=== PATIENT | male | born 1940 | race Caucasian/White ===

== ENCOUNTER 2020-10-21 16:43 | Emergency (ER) | payer MEDICARE ==
[~2020-10-21 16:43] MED LIST: AMLODIPINE BESY10 MG PO; ASPIRIN CHEWABL81 MG PO; CLARITIN10 MG PO; CLOPIDOGREL75 MG PO; CO-ENZYME Q101 EACH PO; HUMULIN N100 UNIT/2 SC; HUMULIN R100 UNIT/2 SC; LASIX40 MG PO; LISINOPRIL40 MG PO; OSTEO BI-FLEX1 EAC3 PO; PRAVASTATIN SOD40 MG PO; PROPRANOLOL HCL40 MG PO; REMERON15 MG PO; TERAZOSIN HCL5 MG PO; VITAMIN B-1100 MG PO; VITAMIN D400 UNIT PO; ZANTAC150 MG PO
[2020-10-21 18:54] LABS: BASOPHIL 0.5 % (0-2); EOSINOPHIL 0.1 % (0-7); HCT 36.5 % (42.0-52.0); HGB 12.4 g/dl (13.2-18.0); LYMPHOCYTE 10.6 % (15-48); MCH 31.2 pg (25.0-31.0); MCV 91.9 fL (78.0-100.0); MONOCYTE 6.1 % (0-12); MPV 10.2 fL (6.0-9.5); NEUTROPHIL 82.4 % (41-80); NRBC 0; PLT 203 K/uL (150-400); RBC 3.97 M/uL (4.70-6.00); RDW 13.4 % (11.5-14.0); WBC 10.5 K/uL (4.0-10.5)
[2020-10-21 19:18] LABS: ALBUMIN 3.4 g/dL (3.4-5.0); BILIRUBIN - TOTAL 0.6 mg/dL (0.2-1.0); BUN/CREAT RATIO (CALC) 20.2 RATIO; CREATININE 1.19 mg/dL (0.67-1.17); GLOBULIN (CALCULATION) 3.1 g/dL; POTASSIUM 3.3 mmol/L (3.5-5.1); TOTAL PROTEIN 6.5 g/dL (6.4-8.2)
[2020-10-21 20:09] LABS: BILIRUBIN NEGATIVE (NEGATIVE); BLOOD 3+ Ery/uL (NEGATIVE); CLARITY HAZY (CLEAR); COLOR YELLOW (YELLOW); GLUCOSE (U) TRACE mg/dL (NORMAL); LEUKOCYTES NEGATIVE Leu/uL (NEGATIVE); NITRITE NEGATIVE (NEGATIVE); PROTEIN 2+ mg/dL (NEGATIVE); SPECIFIC GRAVITY >=1.030 (1.001-1.030); UROBILINOGEN 0.2 mg/dL (0.2-1.0); pH 5.5 (5.0-9.0)
[2020-10-21 20:31] LABS: URINARY WBC RARE
[2020-10-21 20:32] LABS: GRANULAR CASTS TRACE; MUCOUS TRACE
== END 2020-10-22 02:45 | disposition other institution (70) ==
LOC: FER 16:43
PROVIDERS: Emergency Medicine
DX: E11.649 Type 2 diabetes mellitus with hypoglycemia without coma (principal); I21.4 Non-ST elevation (NSTEMI) myocardial infarction; I47.2 Ventricular tachycardia; E87.6 Hypokalemia; I49.3 Ventricular premature depolarization; I10 Essential (primary) hypertension; Z95.1 Presence of aortocoronary bypass graft; Z79.899 Other long term (current) drug therapy; Z79.82 Long term (current) use of aspirin; Z79.4 Long term (current) use of insulin; Z20.822 Contact with and (suspected) exposure to COVID-19
CPT/HCPCS: 36415; 71045; 73030; 80053; 81001; 83735; 84484; 85025; 93005; 96372; J1650; J3475; U0002

== ENCOUNTER 2020-12-10 12:59 | Emergency (ER) | payer MEDICARE ==
[2020-12-10 13:54] LABS: BASOPHIL 0.6 % (0-2); EOSINOPHIL 3.3 % (0-7); HCT 28.6 % (42.0-52.0); HGB 9.8 g/dl (13.2-18.0); LYMPHOCYTE 18.4 % (15-48); MCH 32.7 pg (25.0-31.0); MCHC 34.3 g/dL (32.0-36.0); MCV 95.3 fL (78.0-100.0); MONOCYTE 8.8 % (0-12); MPV 11.2 fL (6.0-9.5); NEUTROPHIL 68.6 % (41-80); NRBC 0; PLT 162 K/uL (150-400); RDW 15.2 % (11.5-14.0)
[2020-12-10 13:59] LABS: INR 1.24 (0.9-1.2); PROTHROMBIN TIME 14.8 SECONDS (11.4-13.6); PTT 32.4 SECONDS (22.2-34.7)
[2020-12-10 14:38] LABS: ALBUMIN 2.5 g/dL (3.4-5.0); BILIRUBIN - TOTAL 1.4 mg/dL (0.2-1.0); BUN/CREAT RATIO (CALC) 19.8 RATIO; CREATININE 1.11 mg/dL (0.67-1.17); GLOBULIN (CALCULATION) 3.1 g/dL; POTASSIUM 2.8 mmol/L (3.5-5.1); TOTAL PROTEIN 5.6 g/dL (6.4-8.2)
[2020-12-10 17:54] LABS: BILIRUBIN NEGATIVE (NEGATIVE); BLOOD NEGATIVE Ery/uL (NEGATIVE); CLARITY CLEAR (CLEAR); COLOR YELLOW (YELLOW); GLUCOSE (U) NORMAL (NORMAL); LEUKOCYTES NEGATIVE Leu/uL (NEGATIVE); NITRITE NEGATIVE (NEGATIVE); PROTEIN TRACE (LOW) mg/dL (NEGATIVE); SPECIFIC GRAVITY 1.015 (1.001-1.030); UROBILINOGEN 0.2 mg/dL (0.2-1.0)
[2020-12-10 18:03] LABS: SQUAMOUS EPITHELIAL CELLS RARE
== END 2020-12-10 20:20 | disposition home or self-care (01) ==
LOC: FER 12:59
PROVIDERS: Emergency Medicine
DX: E11.649 Type 2 diabetes mellitus with hypoglycemia without coma (principal); I21.4 Non-ST elevation (NSTEMI) myocardial infarction; E87.6 Hypokalemia; R00.1 Bradycardia, unspecified; R60.0 Localized edema; E11.22 Type 2 diabetes mellitus with diabetic chronic kidney disease; N18.9 Chronic kidney disease, unspecified; I51.9 Heart disease, unspecified; Z85.07 Personal history of malignant neoplasm of pancreas; Z95.1 Presence of aortocoronary bypass graft; Z79.82 Long term (current) use of aspirin; Z79.899 Other long term (current) drug therapy; Z20.822 Contact with and (suspected) exposure to COVID-19
CPT/HCPCS: 36415; 70450; 71045; 80053; 81001; 82140; 83605; 84484; 85025; 85610; 85730; 87040; 87076; 87088; 87186; 93005; J3480; U0002

== ENCOUNTER 2021-02-26 18:55 | Inpatient (IN) | payer MEDICARE ==
[2021-02-26 16:03] LABS: BASOPHIL 0.4 % (0-2); EOSINOPHIL 0.2 % (0-7); HGB 11.3 g/dl (13.2-18.0); LYMPHOCYTE 2.2 % (15-48); MCH 30.1 pg (25.0-31.0); MCHC 33.2 g/dL (32.0-36.0); MCV 90.7 fL (78.0-100.0); MONOCYTE 0.9 % (0-12); PLT 221 K/uL (150-400); RBC 3.75 M/uL (4.70-6.00); RDW 15.6 % (11.5-14.0); WBC 21.8 K/uL (4.0-10.5)
[2021-02-26 16:04] LABS: NEUTROPHIL 95.5 % (41-80)
[2021-02-26 16:12] LABS: ALBUMIN 1.4 g/dL (3.4-5.0); BILIRUBIN - TOTAL 1.3 mg/dL (0.2-1.0); BUN/CREAT RATIO (CALC) 20.9 RATIO; CREATININE 1.34 mg/dL (0.67-1.17); GLOBULIN (CALCULATION) 4.2 g/dL; POTASSIUM 3.4 mmol/L (3.5-5.1); TOTAL PROTEIN 5.6 g/dL (6.4-8.2)
[2021-02-26 16:25] LABS: BILIRUBIN NEGATIVE (NEGATIVE); BLOOD NEGATIVE Ery/uL (NEGATIVE); CLARITY CLEAR (CLEAR); COLOR YELLOW (YELLOW); GLUCOSE (U) NORMAL (NORMAL); LEUKOCYTES NEGATIVE Leu/uL (NEGATIVE); NITRITE NEGATIVE (NEGATIVE); PROTEIN NEGATIVE (NEGATIVE); SPECIFIC GRAVITY 1.015 (1.001-1.030); UROBILINOGEN 0.2 mg/dL (0.2-1.0)
[2021-02-26 16:35] LABS: PRO-BNP 11104 pg/mL (<450)
[2021-02-26 16:55] LABS: BAND 1 % (0-10); LYMPHOCYTE(M) 4 % (15-48); MONOCYTE(M) 1 % (0-12); NEUTROPHILS(M) 94 % (41-80); PLATELET ESTIMATE NORMAL; PLATELET MORPHOLOGY NORMAL; TOTAL CELL COUNT 100
[2021-02-26 17:44] LABS: LACTIC ACID 2.9 mmol/L (0.4-1.9)
[2021-02-26] MEDS ORDERED: CO-ENZYME Q101 EACH PO (21:32)
[2021-02-26] MEDS ORDERED: INDERAL20 MG PO (21:33)
[2021-02-26] MEDS ORDERED: OSTEO BI-FLEX1 EAC1 PO (21:34)
[2021-02-26] MEDS ORDERED: B-1100 MG PO (21:35)
[2021-02-26] MEDS ORDERED: VITAMIN D350 MC3 PO (21:37)
[2021-02-26] MEDS ORDERED: VITAMIN B-121000 MC1 PO (21:38)
[2021-02-26] MEDS ORDERED: FOLIC ACID1 MG PO (21:40)
[2021-02-26] MEDS ORDERED: FEOSOL325 MG PO (21:41)
[2021-02-26] MEDS ORDERED: K-DUR20 MEQ PO (21:42)
[2021-02-26] MEDS ORDERED: CREON DR 24,001 EACH PO (22:31)
[2021-02-27 07:21] LABS: BASOPHIL 0.4 % (0-2); EOSINOPHIL 0.5 % (0-7); HCT 30.2 % (42.0-52.0); HGB 9.8 g/dl (13.2-18.0); LYMPHOCYTE 6.3 % (15-48); MCH 29.4 pg (25.0-31.0); MCHC 32.5 g/dL (32.0-36.0); MCV 90.7 fL (78.0-100.0); MPV 10.2 fL (6.0-9.5); NEUTROPHIL 88.7 % (41-80); NRBC 0; PLT 184 K/uL (150-400); RBC 3.33 M/uL (4.70-6.00); RDW 15.8 % (11.5-14.0); WBC 16.1 K/uL (4.0-10.5)
[2021-02-27 07:34] LABS: ALBUMIN 1.2 g/dL (3.4-5.0); BUN/CREAT RATIO (CALC) 19.4 RATIO; CREATININE 1.34 mg/dL (0.67-1.17); GLOBULIN (CALCULATION) 3.7 g/dL; POTASSIUM 3.3 mmol/L (3.5-5.1); TOTAL PROTEIN 4.9 g/dL (6.4-8.2)
[2021-02-27] MEDS ORDERED: ZOSYN3.375 G1 IM/IV (11:20)
== END 2021-02-27 17:16 | disposition other institution (70) | DRG 871 ==
LOC: FER 18:55 → FMS 19:22
PROVIDERS: Nurse Practitioner; Physician Assistant; ADMIT Internal Medicine
DX: A41.9 Sepsis, unspecified organism (principal); K75.0 Abscess of liver; I21.4 Non-ST elevation (NSTEMI) myocardial infarction; C78.7 Secondary malignant neoplasm of liver and intrahepatic bile duct; I13.0 Hypertensive heart and chronic kidney disease with heart failure and stage 1 through stage 4 chronic kidney disease, or unspecified chronic kidney disease; C25.0 Malignant neoplasm of head of pancreas; R65.20 Severe sepsis without septic shock; I25.10 Atherosclerotic heart disease of native coronary artery without angina pectoris; E11.9 Type 2 diabetes mellitus without complications; N40.0 Benign prostatic hyperplasia without lower urinary tract symptoms; E11.22 Type 2 diabetes mellitus with diabetic chronic kidney disease; E11.65 Type 2 diabetes mellitus with hyperglycemia; N18.30 Chronic kidney disease, stage 3 unspecified; D72.829 Elevated white blood cell count, unspecified; Z66 Do not resuscitate; K21.9 Gastro-esophageal reflux disease without esophagitis; Z95.1 Presence of aortocoronary bypass graft; I50.9 Heart failure, unspecified; G25.0 Essential tremor; E78.5 Hyperlipidemia, unspecified; I73.9 Peripheral vascular disease, unspecified; F41.1 Generalized anxiety disorder; Z83.3 Family history of diabetes mellitus; Z82.49 Family history of ischemic heart disease and other diseases of the circulatory system; Z86.73 Personal history of transient ischemic attack (TIA), and cerebral infarction without residual deficits; Z80.1 Family history of malignant neoplasm of trachea, bronchus and lung; Z80.8 Family history of malignant neoplasm of other organs or systems; Z79.01 Long term (current) use of anticoagulants; Z79.82 Long term (current) use of aspirin; Z79.899 Other long term (current) drug therapy; Z89.429 Acquired absence of other toe(s), unspecified side; Z85.828 Personal history of other malignant neoplasm of skin; Z95.2 Presence of prosthetic heart valve
CPT/HCPCS: 36415; 71045; 71275; 80053; 81003; 83036; 83605; 83880; 84145; 84443; 84484; 85025; 87040; 87077; 87088; 87186; 93005; J1644; J1940; J2405; J2543; J3370; J7030; J7040; J7050; Q9967; U0002